=== PATIENT | female | born 1960 ===

== ENCOUNTER 2021-06-08 09:06 | Day surgery (SDC) | payer BC ==
[~2021-06-08] VITALS: Ht 170.2 cm; Wt 151.0 kg
[2021-06-08 10:01] VITALS: BP 128/59; PULSE 60; TEMP 97.5
[2021-06-08] MEDS ORDERED: CYMBALTA 60MG60 MG PO (10:03)
[2021-06-08] MEDS ORDERED: ELIQUIS 5MG PO (10:03)
[2021-06-08] MEDS ORDERED: ZYLOPRIM 300MG300 MG PO (10:04)
[2021-06-08] MEDS ORDERED: KLOR-CON SPRIN10 MEQ PO (10:04)
[2021-06-08] MEDS ORDERED: COREG12.5 MG PO (10:05)
[2021-06-08] MEDS ORDERED: DIOVAN 160MG160 MG PO (10:06)
[2021-06-08] MEDS ORDERED: HCTZ 25MG TAB25 MG PO (10:06)
[2021-06-08] MEDS ORDERED: CRESTOR20 MG PO (10:06)
[2021-06-08] MEDS ORDERED: CALCIUM CARBON500 M1 PO (10:07)
[2021-06-08] MEDS ORDERED: ASPIRIN 81M81 MG/TA2 PO (10:08)
[2021-06-08] MEDS ORDERED: THE MEDICINE S200 M2 PO (10:08)
[2021-06-08] MEDS ORDERED: PRILOSEC 20MG20 MG PO (10:09)
[2021-06-08 14:22] VITALS: TEMP 98.2
[2021-06-08] MEDS ORDERED: NORCO 325 MG-51 TAB PO (14:32)
[2021-06-08] MEDS ORDERED: MOTRIN 600600 MG/TAB PO (14:33)
[2021-06-08 14:35] VITALS: BP 154/74; PULSE 63
--- NOTE | 2021-06-08 14:35 | NUR ---
RECEIVED PT FROM [facility] TO BAY 2. VS OBTAINED. PT TOLERATING PO AT THIS TIME. DENIES ANY PAIN. WILL CONTINUE TO MONITOR PT. ORIENTED PT TO ROOM AND CALL LIGHT. VERBALIZED UNDERSTANDING.
[2021-06-08 14:50] VITALS: BP 145/87; PULSE 68
--- NOTE | 2021-06-08 14:50 | NUR ---
PT CONTINUES TO TOLERATE PO. PT DENIES ANY PAIN AT THIS TIME. WILL CONTINUE TO MONITOR PT.
[2021-06-08 15:05] VITALS: BP 155/56; PULSE 61
--- NOTE | 2021-06-08 15:05 | NUR ---
PT CONTINUES TO REST COMFORTABLY. DENIES ANY PAIN AT THIS TIME. WILL CONTINUE TO MONITOR. DISCUSSED FOR PT TO LET ME KNOW WHEN SHE FEELS READY TO DC.
[2021-06-08 15:20] VITALS: BP 150/67; PULSE 74
--- NOTE | 2021-06-08 15:20 | NUR ---
PT RESTING COMFORTABLY. DENIES ANY NEEDS AT THIS TIME. WILL CONTINUE TO MONITOR PATIENT.
--- NOTE | 2021-06-08 15:50 | NUR ---
DISCHARGE TEACHING COMPLETED WITH PT. PT VERBALIZED UNDERSTANDING OF HOME AND FOLLOW UP CARE. ALL QUESTIONS ANSWERED. PT CRITERIA MET FOR DC. DISCHARGE PAPERWORK GIVEN TO PT.
== END 2021-06-08 16:00 | disposition home or self-care (01) ==
LOC: SDCO 09:06
DX: K85.10 Biliary acute pancreatitis without necrosis or infection (principal); K81.1 Chronic cholecystitis; I10 Essential (primary) hypertension; M10.9 Gout, unspecified; I25.10 Atherosclerotic heart disease of native coronary artery without angina pectoris; I25.2 Old myocardial infarction; G43.909 Migraine, unspecified, not intractable, without status migrainosus; E78.5 Hyperlipidemia, unspecified; G47.33 Obstructive sleep apnea (adult) (pediatric); K21.9 Gastro-esophageal reflux disease without esophagitis; F41.9 Anxiety disorder, unspecified; F32.A Depression, unspecified; E66.01 Morbid (severe) obesity due to excess calories; Z68.43 Body mass index [BMI] 50.0-59.9, adult; Z79.82 Long term (current) use of aspirin; Z79.01 Long term (current) use of anticoagulants; Z79.899 Other long term (current) drug therapy; Z85.828 Personal history of other malignant neoplasm of skin; Z95.5 Presence of coronary angioplasty implant and graft; I48.0 Paroxysmal atrial fibrillation
CPT/HCPCS: J0690; J1100; J1885; J2405; J2704; J7120; Q9967